=== PATIENT | male | born 1995 | race Caucasian/White ===

== ENCOUNTER 2018-03-23 16:17 | Emergency (ER) | payer OTHER ==
[~2018-03-23] VITALS: Wt 79.4 kg
[2018-03-23] MEDS ORDERED: LEVOTHYROXINE200 MC2 PO (16:41)
[2018-03-23 16:45] LABS: BASO % 0.5 % (0.0-1.0); EOS % 0.4 % (1.0-4.0); HEMATOCRIT 42.4 % (42.0-52.0); HEMOGLOBIN 15.1 g/dl (14.0-18.0); LYMPH # 2.3 10*3/uL (1.3-4.4); LYMPH % 28.2 % (27.0-41.0); MEAN CORPUSCULAR HGB 32.1 pg (27.0-31.0); MEAN CORPUSCULAR HGB CONC 35.6 g/dl (33.0-37.0); MEAN PLATELET VOLUME 10.5 fl (9.6-12.3); MONO # 0.6 10*3/uL (0.1-1.0); MONO % 7.5 % (3.0-9.0); NEUT # 5.2 10*3/uL (2.3-7.9); NEUT % 63.2 % (47.0-73.0); PLATELET COUNT AUTOMATED 259 10*3/uL (130-400); RED BLOOD COUNT 4.71 10*6/uL (4.50-5.90); RED CELL DISTRI WIDTH 11.5 % (0-14.5); WHITE BLOOD COUNT 8.2 10*3/uL (4.8-10.8)
[2018-03-23] MEDS ORDERED: EPIPEN 2-P0.3 MG/0.3 IJ (16:56)
[2018-03-23] MEDS ORDERED: CLARITIN10 MG PO (16:56)
[2018-03-23] MEDS ORDERED: PEPCID20 MG PO (16:56)
[2018-03-23] MEDS ORDERED: MEDROL DOSEPAK4 MG PO (16:56)
[2018-03-23 16:58] LABS: BUN 14 mg/dl (7-24); CHLORIDE 107 mmol/L (98-107); CREATININE 1.19 mg/dL (0.70-1.30); POTASSIUM 3.3 mmol/L (3.5-5.1); SODIUM 141 mmol/L (136-145)
[2018-04-11] MEDS ORDERED: PEPCID20 MG PO (18:11)
[2018-04-11] MEDS ORDERED: CLARITIN10 MG PO (18:11)
[2018-04-11] MEDS ORDERED: MEDROL DOSEPAK4 MG PO (18:11)
[2018-04-11] MEDS ORDERED: EPIPEN 2-P0.3 MG/0.3 IJ (19:05)
== END 2018-03-23 20:06 | disposition home or self-care (01) ==
LOC: ED 16:17
PROVIDERS: Emergency Medicine
DX: T63.441A Toxic effect of venom of bees, accidental (unintentional), initial encounter (principal); Z91.030 Bee allergy status; Z79.899 Other long term (current) drug therapy; Y92.9 Unspecified place or not applicable